=== PATIENT | male | born 1970 | race Caucasian/White ===

== ENCOUNTER → 2022-06-06 | Outpatient (CLI) | payer OTHER ==
--- NOTE | 2022-06-06 14:30 | DIREP ---
PROCEDURE:XRAY SINUSES PARANASAL<3 VWS COMPARISON:None. INDICATIONS:NEEDED FOR HISTORY AND PHYSICAL EVALUATION TECHNIQUE: Three views of the paranasal sinuses were performed. FINDINGS: MAXILLARY:Normal. No mucosal thickening or fluid level. ETHMOID:Normal. No mucosal thickening or fluid level. FRONTAL:Normal. No mucosal thickening or fluid level. SPHENOID:Normal. No mucosal thickening or fluid level. OTHER:Negative. CONCLUSION:The paranasal sinuses are clear. Dictated by: Dawood Turcios M.D. on 06/06/2022 at 02:28 PM
== END | disposition home or self-care (01) ==
LOC: RAD 12:44
PROVIDERS: ATTEND Nurse Practitioner
DX: Z00.00 Encounter for general adult medical examination without abnormal findings (principal)
CPT/HCPCS: 70220